=== PATIENT | male | born 1990 | race Caucasian/White ===

== ENCOUNTER 2023-10-27 04:00 | Day surgery (SDC) | payer OTHER ==
[2023-10-27] VITALS (202 sets, daily range): BP systolic 83–136; BP diastolic 28–81
[~2023-10-27] VITALS: Ht 182.9 cm; Wt 94.0 kg
--- NOTE | 2023-10-27 07:00 | NUR ---
Patient arrived to the [facility] suite, identification and demographics confirmed. Patient to room 10, AAO, ambulatory, vitals obtained, ID/allergy/fall bands placed, changed into hospital gown, LIZBETH hose, and non-slip socks. Procedure and timeline explained for treatment and discharge. All questions answered and the patient presents no concerns at this time. V/S assessed, call light is near.
[2023-10-27 08:36] LABS: BASO% 0.3 % (0-3); EOS% 3.7 % (0-8); HEMATOCRIT 40.2 % (39.0-50.0); HEMOGLOBIN 14.1 g/dl (14.0-18.0); IMMATURE GRANULOCYTES 0.2 % (0.0-5.0); LYMPH% 24.2 % (15-41); MEAN CELL VOLUME 84.5 fL CALC (80.0-100.0); MEAN CORPUSCULAR HGB 29.6 pG CALC (26.0-32.0); MEAN CORPUSCULAR HGB CONC 35.1 g/dL CAL (32.0-36.0); MONO% 13.2 % (2-13); NEUT# 3.46 thou/uL (1.82-7.42); NEUT% 58.4 % (42-76); RED BLOOD COUNT 4.76 mill/uL (4.70-6.10); RED CELL DISTRI WIDTH 12.5 % (11.5-15.5)
[2023-10-27 08:46] LABS: ALBUMIN 3.8 g/dL (3.2-5.0); ALKALINE PHOSPHATASE 58 u/l (38-126); ANION GAP 9 (6-22 (CALC)); BILIRUBIN, TOTAL 0.4 mg/dL (0.2-1.3); BUN 20 mg/dL (9-20); BUN/CREATININE RATIO 20 (12-20 (CALC)); CARBON DIOXIDE 27 mmol/l (22-30); CHLORIDE 105 mmol/l (95-108); GFR FOR AFR.AMER. > 60 ML/MIN (>=60 (CALC)); GFR OTHER RACES > 60 ML/MIN (>=60 (CALC)); POTASSIUM 3.7 mmol/l (3.5-5.1); SGOT/AST 30 u/l (17-59); SODIUM 137 mmol/l (137-146); TOTAL PROTEIN 6.2 g/dL (6.3-8.2)
--- NOTE | 2023-10-27 09:00 | NUR ---
Patients vital signs within pre-treatment parameters for 1.5 hour recheck. No indication for additional Valium or Clonidine as patient is resting comfortably and vital signs are within range. Patient resting comfortably in bed. Easily aroused, maintains focus, and drifts back to sleep. No signs of active withdrawal or distress noted at this time. Continuous SPO2, rhythm, and respiratory monitoring initiated. IVF @ 250 mL/HR, room air, VSS.
[2023-10-27] MEDS ORDERED: SEROQUEL100 MG PO (09:12)
[2023-10-27] MEDS ORDERED: BUPROPION HCL150 MG PO (09:28)
[2023-10-27] MEDS ORDERED: CIALIS5 MG PO (09:28)
[2023-10-27] MEDS ORDERED: NEURONTIN800 MG PO (09:28)
[2023-10-27] MEDS ORDERED: CIALIS10 MG PO (09:29)
[2023-10-27] MEDS ORDERED: ARIMIDEX1 MG PO (09:30)
[2023-10-27] MEDS ORDERED: TESTOST ENA200 MG/ML IM (09:31)
--- NOTE | 2023-10-27 11:08 | NUR ---
Induction Note Patient to [facility] procedure room. Time out performed at 1108. Patient placed on monitors, Mary hugger, bilateral wrist restraints applied for ET tube protection. Versed 5mg given IV push at 1111 Tourniquet applied to right arm Lidocaine 100mg given at 1112 IV push followed by Rocoronium 10mg at 1113 IV push and held for 90 seconds. Propofol bolus of 180mg given at 1114 IV push. Succinylcholine 80mg given IV push at 1115. Smooth intubation with 7.5 ETT. Positive CO2. Positive Auscultation for air exchange. Patient placed on ventilator for spontaneous ventilation. Placed on Propofol IV drip at 1116. OG inserted. Positive air on auscultation. Positive gastric content. Stomach washed at this time. Naltrexone 50mg given via OG tube with Clonidine 0.1 mg given via OG Tube. OG clamped for 45 minutes. Will monitor patient for symptoms of withdrawal and adjust propfol accordingly.
--- NOTE | 2023-10-27 11:35 | NUR ---
OG close note Stomach washed at this time. Naltrexone 50 mg with Clonidine 0.1 mg via OG tube. OG will be clamped for 45 minutes.
--- NOTE | 2023-10-27 12:20 | NUR ---
OG open note OG open at this time. Gastric content draining into drainage bag. OG to drain for 45 minutes. Propofol will be titrated down based on patient.
--- NOTE | 2023-10-27 13:05 | NUR ---
OG close note Stomach washed at this time. Naltrexone 50 mg with Clonidine 0 mg via OG tube. OG will be clamped for 45 minutes.
--- NOTE | 2023-10-27 14:35 | NUR ---
OG close note Stomach washed at this time. Naltrexone 50 mg with Clonidine 0.1 mg via OG tube. OG will be clamped for 45 minutes.
--- NOTE | 2023-10-27 16:30 | NUR ---
OG close note Stomach washed at this time. Naltrexone 25 mg with Clonidine 0.1 mg via OG tube. OG will be clamped for 45 minutes.
--- NOTE | 2023-10-27 17:35 | NUR ---
Extubation note Closing medications given Benadryl 50mg IV push, Decadron 10mg IV push,Magnesium 4 grams IV, Zofran 8mg IV push, Octreotide 100mcg SC. Stomach washed out prior to extubation. Suctioned gastric content. OG removed. Patient extubated. Propofol Discontinued. Wrist restraints removed. Mary hugger Removed. See [facility] Moderate sedate recovery record for further notes and assessment.
[2023-10-27] MEDS ORDERED: NALTREXONE50 MG PO (18:13)
[2023-10-27] MEDS ORDERED: CLONIDINE0.1 MG PO (18:14)
[2023-10-27] MEDS ORDERED: KLONOPIN2 MG PO (18:15)
--- NOTE | 2023-10-27 19:00 | NUR ---
PT RESTING NO DISTRESS NOTED ON EXAM. PT ON RA VS WNL. LR @ 100 ML/HR. PT ABLE TO URINATE WITHOUT DIFFICULTY. BED ALARM ON.
--- NOTE | 2023-10-28 | NUR ---
NO CHANGES PT RESTING NO DISTRESS NOTED. BED ALARM ON. PT HAS BEEN GETTING UP TO RESTROOM WITH MINIMAL HELP TO VOID.
--- NOTE | 2023-10-28 04:24 | NUR ---
NO CHANGES PT RESTING NO DISTRESS NOTED. BED ALARM ON.
[2023-10-28 04:55] VITALS: BP 104/48
[2023-10-28 06:17] LABS: BASO% 0.2 % (0-3); HEMATOCRIT 42.1 % (39.0-50.0); HEMOGLOBIN 14.5 g/dl (14.0-18.0); IMMATURE GRANULOCYTES 0.8 % (0.0-5.0); LYMPH% 11.4 % (15-41); MEAN CORPUSCULAR HGB 28.9 pG CALC (26.0-32.0); MEAN CORPUSCULAR HGB CONC 34.4 g/dL CAL (32.0-36.0); NEUT# 5.16 thou/uL (1.82-7.42); NEUT% 79.6 % (42-76); RED BLOOD COUNT 5.01 mill/uL (4.70-6.10); RED CELL DISTRI WIDTH 12.3 % (11.5-15.5)
[2023-10-28 06:50] LABS: ALBUMIN 3.8 g/dL (3.2-5.0); ALKALINE PHOSPHATASE 60 u/l (38-126); ANION GAP 12 (6-22 (CALC)); BILIRUBIN, TOTAL 0.4 mg/dL (0.2-1.3); BUN 16 mg/dL (9-20); BUN/CREATININE RATIO 16 (12-20 (CALC)); CARBON DIOXIDE 24 mmol/l (22-30); CHLORIDE 112 mmol/l (95-108); GFR FOR AFR.AMER. > 60 ML/MIN (>=60 (CALC)); GFR OTHER RACES > 60 ML/MIN (>=60 (CALC)); POTASSIUM 4.1 mmol/l (3.5-5.1); SGOT/AST 28 u/l (17-59); SODIUM 143 mmol/l (137-146); TOTAL PROTEIN 6.2 g/dL (6.3-8.2)
--- NOTE | 2023-10-28 08:00 | NUR ---
PT IN BED RESTING WITH HOB UP. PT IS ALERT AND ORIENTED X 3. PT HAS NO C/O PAIN AT THIS TIME. IV SITE TO RFA AND RW CLEAN, DRY AND INTACT WITH LR INFUSING @ 100 ML/HR. LUNGS CLEAR THROUGHOUT AND BREATHING IS NON LABORED. PT ABD IS SOFT WITH BS ACTIVE. PT AMBULATES WELL TO BATHROOM FOR TOILETING NEEDS. PT HAS CALL LIGHT WITHIN REACH AND SAFETY MEASURES IN PLACE AT THIS TIME.
--- NOTE | 2023-10-28 10:30 | NUR ---
PT UP TO SHOWER, PT TOLERATED WELL.
--- NOTE | 2023-10-28 12:00 | NUR ---
PT SITTING UP IN BED, PT HAS NO C/O PAIN AT THIS TIME. PT EATING SMALL AMOUNT OF FOOD AND DRINKING FLUIDS. PT HAS CALL LIGHT WITHIN REACH AND SAFETY MEASURES IN PLACE AT THIS TIME.
--- NOTE | 2023-10-28 14:30 | NUR ---
Discharge instructions given. Patient verbalizes understanding of same. Discharged in condition via Wheelchair to Home with family. All belongings sent with pt.
== END 2023-10-28 14:33 | disposition home or self-care (01) | DRG 897 ==
LOC: MS2 04:00 → ANR 04:00 → MS2 16:50 → ANR 10-28 14:33
PROVIDERS: ATTEND Anesthesiology Critical Care Medicine
DX: F11.20 Opioid dependence, uncomplicated (principal)
CPT/HCPCS: J2354; J3475